=== PATIENT | female | born 1985 | race Caucasian/White ===

== ENCOUNTER 2021-01-27 09:27 | Day surgery (SDC) | payer OTHER, SELFPAY ==
[~2021-01-27] VITALS: Ht 162.6 cm; Wt 53.2 kg
[2021-01-27 10:44] LABS: HCG,QUAL RESULT NEGATIVE (NEGATIVE)
[2021-01-27] MEDS ORDERED: DESFLURANE 15 MIN GAS INH ONE (11:16)
[2021-01-27] MEDS ORDERED: fentaNYL CITRATE/PF 100 MCG/2 ML AMP IVP ONE (11:16)
[2021-01-27] MEDS ORDERED: KETOROLAC TROMETHAMINE 30 MG VIAL IVP ONE (11:16)
[2021-01-27] MEDS ORDERED: PROPOFOL 200MG/ 20ML VIAL (DIPRIVAN) IV ONE (11:16)
[2021-01-27] MEDS ORDERED: LR 1,000 ML IV.SOLN IV ONE (11:16)
[2021-01-27] MEDS ORDERED: ONDANSETRON HCL 4 MG/2 ML VIAL IVP ONE (11:16)
[2021-01-27] MEDS ORDERED: DEXAMETHASONE SOD PHOSPHATE 4 MG/ML VIAL IVP ONE (11:16)
[2021-01-27] MEDS ORDERED: NS 1000 ML IV.SOLN IV ONE (11:16)
[2021-01-27] MEDS ORDERED: ONDANSETRON HCL 4 MG/2 ML VIAL IVP PRN (12:00)
[2021-01-27] MEDS ORDERED: ACETAMINOPHEN I.V. 1000 MG 100 ML IV PRN (12:00)
[2021-01-27 14:01] VITALS: BP_SYST 100
== END 2021-01-27 14:40 | disposition home or self-care (01) ==
LOC: SMU 09:27 → SDS 09:27
PROVIDERS: ATTEND Obstetrics & Gynecology
DX: N92.0 Excessive and frequent menstruation with regular cycle (principal); K21.9 Gastro-esophageal reflux disease without esophagitis; Z79.899 Other long term (current) drug therapy; Z20.828 Contact with and (suspected) exposure to other viral communicable diseases
CPT/HCPCS: 36415; 58563; 84703; 86886; 86900; 86901; J1100; J1885; J2405; J2704; J3010; J7030; J7120; U0003